=== PATIENT | female | born 1935 | race Caucasian/White ===

== ENCOUNTER → 2016-11-23 | Outpatient (CLI) | payer MEDICARE, BC ==
--- NOTE | 2016-11-23 11:10 | KCIC ---
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 Findings: Single view of the orbits is submitted. No metallic device or foreign body is identified in the region of orbits. Impression: 1. No metallic device or foreign body is identified in the region of orbits. Electronically signed by: Uri Zhong MD (11/23/2016 11:07 AM)
--- NOTE | 2016-11-23 12:06 | KCIC ---
MRI Lumbar Spine without contrast History: Bilateral posterior leg pain for several months, lumbar pain, left greater than right Technique: Multiplanar, multi sequential noncontrast MR imaging was performed of the lumbar spine. Contrast: None Comparison: None Findings: Most inferior fully formed intervertebral disc space is considered L5-S1. Lumbar vertebral body stature is mostly maintained other than Schmorl's nodes. There is grade 1 anterior spondylolisthesis L4-5. There is multilevel advanced degenerative disc disease L2-3 to L4-5, to lesser degree at L1-2. There is also advanced degenerative disc disease T11-12 at which there is endplate edema. There is minimal posterior subluxation T11 relative to T12. Conus terminates at L1. T11-12: There is minimal disc osteophyte complex. There is mild indentation upon the ventral thecal sac greater in the left lateral recess, very mild narrowing of the far left lateral recess. Right neural foramen is adequate, mild to moderate narrowing of the left neural foramen. T12-L1: There is probably a negligible extrusion extending above the intervertebral disc space in the far left lateral recess. Spinal canal and neural foramina are adequate. L1-L2: There is shallow protrusion greater in the right lateral recess. There is mild buckling of the ligamentum flavum. Neural foramina are not significantly narrowed. Spinal canal is overall adequate L2-L3: There is a minimal disc osteophyte complex and protrusion eccentric to the right lateral recess. There is minimal buckling of the ligamentum flavum. There is mild narrowing of the far right lateral recess. Left neural foramen is adequate. There is mild narrowing of the right neural foramen. L3-L4: There is mild/moderate facet degenerative change and buckling of the ligamentum flavum. There is shallow broad posterior protrusion. There is moderate narrowing of the left neural foramen, contacting of the undersurface exiting left L3 nerve root by shallow protrusion. There is mild narrowing of the right neural foramen. There is mild narrowing of the far lateral recesses greater on the left. L4-L5: There is fairly severe buckling of the ligamentum flavum greater on the right. There is moderate to severe facet degenerative change. There is partial uncovering of the posterior aspect of the disc due to spondylolisthesis with superimposed bulge. Combination of findings results in severe spinal stenosis, lateral recess stenosis bilaterally with impingement descending L5 nerve roots. There is near complete effacement of subarachnoid space. There is severe narrowing of the left neural foramen with contact undersurface exiting left L4 nerve root by bulge/protrusion. There is moderate narrowing of the right neural foramen. L5-S1: Spinal canal and neural foramina are adequate. Impression: 1. The most inferior fully formed intervertebral disc space is considered L5-S1. There is severe spinal stenosis at L4-5. 2. There is severe left and moderate right L4-5 neural foramina compromise. 3. There is grade 1 anterior spondylolisthesis at L4-5 at which there is facet degenerative change. 4. There is more advanced degenerative disc disease L2-3 through L4-5, also at T11-12. Electronically signed by: Uri Zhong MD (11/23/2016 12:03 PM)
== END | disposition home or self-care (01) ==
LOC: KCIC MRI 10:38
PROVIDERS: ATTEND Nurse Practitioner Family
DX: Z13.5 Encounter for screening for eye and ear disorders (principal); M51.36 Other intervertebral disc degeneration, lumbar region; M43.16 Spondylolisthesis, lumbar region; M48.06 Spinal stenosis, lumbar region
CPT/HCPCS: 70030; 72148